=== PATIENT | male | born 1960 | race Caucasian/White ===

== ENCOUNTER 2017-04-23 22:57 | Emergency (ER) | payer MEDICARE, OTHER ==
[2017-04-23 23:13] VITALS: RESP 18; TEMP 97
[2017-04-23] MEDS ORDERED: LIDOCAINE URO-JET JELLY 2% 5 ML KIT URETHRAL ONE (23:13)
[2017-04-23] MEDS ORDERED: SODIUM CHLORIDE 0.9% 1,000 ML IV STA (23:13)
[2017-04-23] MEDS ORDERED: MULTIVITAMINS, THERA 1 EACH TAB PO STA (23:13)
[2017-04-23] MEDS ORDERED: SODIUM CHLORIDE 0.9% 1,000 ML with MVI, ADULT NO.4 WITH VIT K 10 ML, THIAMINE 100 MG, F... IV ONE ×4 (23:14)
--- NOTE | 2017-04-23 23:24 | ED ---
General Adult HPI - General Chief complaint: Recheck/Abnormal Lab/Rx Stated complaint: ETOH Time Seen by Provider: 04/23/17 23:06 Source: patient, EMS, RN notes reviewed, old records reviewed Mode of arrival: EMS Limitations: no limitations - History of Present Illness Initial comments: Patient is a 56-year-old male with a history of strokes presents emergency Department for alcohol intoxication and urinary retention. Patient reports he has not been able to urinate today. He has a known history of prostate disorder. Patient states that he usually does not drink. He reports that he had multiple years and glasses of whiskey today. Patient states that he has had no falls, denies any head trauma. Patient states that he was at home by himself, and a friend called the ambulance for him. - Related Data Allergies Allergy/AdvReac Type Severity Reaction Status Date / Time No Known Allergies Allergy Verified 04/23/17 23:05 Review of Systems ROS Statement: Those systems with pertinent positive or pertinent negative responses have been documented in the HPI. ROS Other: All systems not noted in ROS Statement are negative. Past Medical History Past Medical History: CVA/TIA History of Any Multi-Drug Resistant Organisms: None Reported Past Surgical History: No Surgical Hx Reported Past Psychological History: No Psychological Hx Reported Smoking Status: Never smoker Past Alcohol Use History: Occasional Past Drug Use History: None Reported General Exam - General Exam Comments Initial Comments: 56-year-old male. No distress. Limitations: no limitations General appearance: alert, appears intoxicated Head exam: Present: atraumatic, normocephalic, normal inspection Eye exam: Present: normal appearance, PERRL, EOMI. Absent: scleral icterus, conjunctival injection, periorbital swelling ENT exam: Present: normal exam, mucous membranes moist Neck exam: Present: normal inspection. Absent: tenderness, meningismus, lymphadenopathy Respiratory exam: Present: normal lung sounds bilaterally. Absent: respiratory distress, wheezes, rales, rhonchi, stridor Cardiovascular Exam: Present: regular rate, normal rhythm, normal heart sounds. Absent: systolic murmur, diastolic murmur, rubs, gallop, clicks GI/Abdominal exam: Present: soft, normal bowel sounds. Absent: distended, tenderness, guarding, rebound, rigid Extremities exam: Present: normal inspection, full ROM, normal capillary refill. Absent: tenderness, pedal edema, joint swelling, calf tenderness Back exam: Present: normal inspection Neurological exam: Present: alert (Patient appears intoxicated) Psychiatric exam: Present: normal affect, normal mood Skin exam: Present: warm, dry, intact, normal color. Absent: rash Course Vital Signs 04/23/17 04/24/17 04/24/17 23:06 00:22 00:57 Temperature 97.0 F L Pulse Rate 61 62 64 Respiratory 18 18 18 Rate Blood Pressure 123/77 105/67 103/65 O2 Sat by Pulse 97 98 98 Oximetry 04/24/17 02:52 Temperature Pulse Rate 60 Respiratory 18 Rate Blood Pressure 95/58 O2 Sat by Pulse 98 Oximetry Medical Decision Making - Medical Decision Making 56-year-old male with history of strokes presents emergency Department with chief complaint alcohol intoxication and urinary retention. Patient had approximately a liter of fluids within his bladder. He was given a catheterization and Mcintyre cath bag. We did do a urine drug sample, positive for opiates, benzos. Patient CT is negative for any acute process. Patient's labwork was reviewed, mildly low hemoglobin of 10.0. He has no complaints of vomiting or diarrhea and emesis. We have no previous labs to compare this to. Similarly he is a mildly elevated creatinine. No significant signs of dehydration. He was hydrated with 2 open up any patient is informed that he needs to follow-up with urologist and primary care provider regards to the acute urinary retention, most likely related to his prostate disorder. Patient will leave with a Mcintyre catheter. Discussed the importance of following up with primary care provider as well as urology. - Lab Data Result diagrams: 04/23/17 23:27 04/24/17 00:06 Lab Results 04/23/17 04/23/17 04/23/17 Range/Units 23:27 23:27 23:27 WBC 4.4 (3.8-10.6) k/uL RBC 3.50 L (4.30-5.90) m/uL Hgb 10.5 L (13.0-17.5) gm/dL Hct 32.9 L (39.0-53.0) % MCV 93.9 (80.0-100.0) fL MCH 30.2 (25.0-35.0) pg MCHC 32.1 (31.0-37.0) g/dL RDW 14.2 (11.5-15.5) % Plt Count 150 (150-450) k/uL Neutrophils % 40 % Lymphocytes % 45 % Monocytes % 6 % Eosinophils % 4 % Basophils % 1 % Neutrophils # 1.8 (1.3-7.7) k/uL Lymphocytes # 2.0 (1.0-4.8) k/uL Monocytes # 0.3 (0-1.0) k/uL Eosinophils # 0.2 (0-0.7) k/uL Basophils # 0.1 (0-0.2) k/uL Sodium (137-145) mmol/L Potassium (3.5-5.1) mmol/L Chloride (98-107) mmol/L Carbon Dioxide (22-30) mmol/L Anion Gap mmol/L BUN (9-20) mg/dL Creatinine (0.66-1.25) mg/dL Est GFR (MDRD) Af Amer (>60 ml/min/1.73 sqM) Est GFR (MDRD) Non-Af (>60 ml/min/1.73 sqM) Glucose (74-99) mg/dL Calcium (8.4-10.2) mg/dL Magnesium 1.9 (1.6-2.3) mg/dL Total Bilirubin (0.2-1.3) mg/dL AST (17-59) U/L ALT (21-72) U/L Alkaline Phosphatase (38-126) U/L Total Protein (6.3-8.2) g/dL Albumin (3.5-5.0) g/dL Amylase 55 (30-110) U/L Lipase 61 (23-300) U/L Urine Color Light Yellow Urine Appearance Clear (Clear) Urine pH 6.0 (5.0-8.0) Ur Specific [place] 1.009 (1.001-1.035) Urine Protein Negative (Negative) Urine Glucose (UA) Negative (Negative) Urine Ketones Negative (Negative) Urine Blood Negative (Negative) Urine Nitrite Negative (Negative) Urine Bilirubin Negative (Negative) Urine Urobilinogen <2.0 (<2.0) mg/dL Ur Leukocyte Esterase Negative (Negative) Urine Opiates Screen Detected H (NotDetected) Ur Oxycodone Screen Not Detected (NotDetected) Urine Methadone Screen Not Detected (NotDetected) Ur Propoxyphene Screen Not Detected (NotDetected) Ur Barbiturates Screen Not Detected (NotDetected) U Tricyclic Antidepress Not Detected (NotDetected) Ur Phencyclidine Scrn Not Detected (NotDetected) Ur Amphetamines Screen Not Detected (NotDetected) U Methamphetamines Scrn Not Detected (NotDetected) U Benzodiazepines Scrn Detected H (NotDetected) Urine Cocaine Screen Not Detected (NotDetected) U Marijuana (THC) Screen Not Detected (NotDetected) Serum Alcohol 160 mg/dL 04/24/17 Range/Units 00:06 WBC (3.8-10.6) k/uL RBC (4.30-5.90) m/uL Hgb (13.0-17.5) gm/dL Hct (39.0-53.0) % MCV (80.0-100.0) fL MCH (25.0-35.0) pg MCHC (31.0-37.0) g/dL RDW (11.5-15.5) % Plt Count (150-450) k/uL Neutrophils % % Lymphocytes % % Monocytes % % Eosinophils % % Basophils % % Neutrophils # (1.3-7.7) k/uL Lymphocytes # (1.0-4.8) k/uL Monocytes # (0-1.0) k/uL Eosinophils # (0-0.7) k/uL Basophils # (0-0.2) k/uL Sodium 141 (137-145) mmol/L Potassium 4.0 (3.5-5.1) mmol/L Chloride 105 (98-107) mmol/L Carbon Dioxide 26 (22-30) mmol/L Anion Gap 10 mmol/L BUN 15 (9-20) mg/dL Creatinine 1.30 H (0.66-1.25) mg/dL Est GFR (MDRD) Af Amer >60 (>60 ml/min/1.73 sqM) Est GFR (MDRD) Non-Af 57 (>60 ml/min/1.73 sqM) Glucose 88 (74-99) mg/dL Calcium 8.3 L (8.4-10.2) mg/dL Magnesium (1.6-2.3) mg/dL Total Bilirubin 0.2 (0.2-1.3) mg/dL AST 27 (17-59) U/L ALT 44 (21-72) U/L Alkaline Phosphatase 54 (38-126) U/L Total Protein 5.6 L (6.3-8.2) g/dL Albumin 3.5 (3.5-5.0) g/dL Amylase (30-110) U/L Lipase (23-300) U/L Urine Color Urine Appearance (Clear) Urine pH (5.0-8.0) Ur Specific [place] (1.001-1.035) Urine Protein (Negative) Urine Glucose (UA) (Negative) Urine Ketones (Negative) Urine Blood (Negative) Urine Nitrite (Negative) Urine Bilirubin (Negative) Urine Urobilinogen (<2.0) mg/dL Ur Leukocyte Esterase (Negative) Urine Opiates Screen (NotDetected) Ur Oxycodone Screen (NotDetected) Urine Methadone Screen (NotDetected) Ur Propoxyphene Screen (NotDetected) Ur Barbiturates Screen (NotDetected) U Tricyclic Antidepress (NotDetected) Ur Phencyclidine Scrn (NotDetected) Ur Amphetamines Screen (NotDetected) U Methamphetamines Scrn (NotDetected) U Benzodiazepines Scrn (NotDetected) Urine Cocaine Screen (NotDetected) U Marijuana (THC) Screen (NotDetected) Serum Alcohol mg/dL - Radiology Data Radiology results: report reviewed CT brain shows previous occipital lobe infarct. No acute abnormalities noted. Disposition Clinical Impression: Urinary retention, Alcohol intoxication Disposition: ADMITTED IP TO THIS HOSP Condition: Stable Instructions: Urinary Retention in Men (ED), Alcohol Intoxication (ED) Additional Instructions: Patient advised to follow-up with primary care provider in regards to catheter removal. Patient instructed to have the catheter stay in until seen by proper urologist. Patient advised to avoid using benzodiazapines, opiates, and drinking alcohol. Patient should return to emergency department if any alarming signs or symptoms occur. Referrals: None,Stated [Primary Care Provider] - 1-2 days Asia Daley MD [STAFF PHYSICIAN] - 1-2 days Godfrey Rueda MD [STAFF PHYSICIAN] - 1-2 days Time of Disposition: 03:51
[2017-04-23 23:37] LABS: Appearance,Urine Clear (Clear); Basophils # (A) 0.1 k/uL (0-0.2); Basophils % (A) 1 %; Bilirubin,Urine Negative (Negative); CHCM 32.1; Eosinophils # (A) 0.2 k/uL (0-0.7); Eosinophils % (A) 4 %; Glucose,Urine (UA) Negative (Negative); HCT 32.9 % (39.0-53.0); HGB 10.5 gm/dL (13.0-17.5); Ketones,Urine Negative (Negative); Leukocyte Esterase,Urine Negative (Negative); Luc # (Auto) 0.14; Luc % (Auto) 3; Lymphocytes % (A) 45 %; MCH 30.2 pg (25.0-35.0); MCHC 32.1 g/dL (31.0-37.0); MCV 93.9 fL (80.0-100.0); Mean Platelet Volume 7.5; Monocytes # (A) 0.3 k/uL (0-1.0); Monocytes % (A) 6 %; Neutrophils # (A) 1.8 k/uL (1.3-7.7); Neutrophils % (A) 40 %; Nitrite,Urine Negative (Negative); Protein,Urine Negative (Negative); RDW 14.2 % (11.5-15.5); Specific Gravity,Urine 1.009 (1.001-1.035); UA Billing (MACRO vs. MICRO) CHEM; Urobilinogen,Urine <2.0 mg/dL (<2.0); WBC 4.4 k/uL (3.8-10.6); WBC (Perox) 4.34
[2017-04-23 23:44] LABS: Magnesium 1.9 mg/dL (1.6-2.3)
[2017-04-24 00:19] LABS: ALT 44 U/L (21-72); AST 27 U/L (17-59); Alkaline Phosphatase 54 U/L (38-126); Anion Gap 10 mmol/L; Blood Urea Nitrogen 15 mg/dL (9-20); Calcium 8.3 mg/dL (8.4-10.2); Carbon Dioxide 26 mmol/L (22-30); Chloride 105 mmol/L (98-107); Glucose 88 mg/dL (74-99); Non-African American GFR(MDRD) 57 (>60 ml/min/1.73 sqM); Sodium 141 mmol/L (137-145); Total Bilirubin 0.2 mg/dL (0.2-1.3); Total Protein 5.6 g/dL (6.3-8.2)
--- NOTE | 2017-04-24 02:27 | CT ---
EXAMINATION TYPE: CT brain wo con DATE OF EXAM: 04/24/2017 COMPARISON: NONE HISTORY: AMS, confusion CT DLP: 1072.30 mGycm Automated exposure control for dose reduction was used. FINDINGS: There is large old left occipital lobe cortical infarct. There is no mass effect nor midline shift. T here is no sign of intracranial hemorrhage. The calvarium is intact. There is mild cerebral cortical atrophy. IMPRESSION: OLD LEFT OCCIPITAL LOBE INFARCT. NO ACUTE INTRACRANIAL ABNORMALITY.
[2017-04-24 02:54] VITALS: BP 95/58; PULSE 60
== END 2017-04-24 04:30 | disposition other institution (70) ==
LOC: EC 22:57
DX: F10.120 Alcohol abuse with intoxication, uncomplicated (principal); R33.9 Retention of urine, unspecified; Z86.73 Personal history of transient ischemic attack (TIA), and cerebral infarction without residual deficits
CPT/HCPCS: 99285; 51702; 96365; 96366 ×3; 36415 ×2; 80053; 82150; 83690; 83735; 85025; 81003; 80306; 80320; 70450; J3411